=== PATIENT | male | born 1945 | race Caucasian/White ===

== ENCOUNTER → 2016-07-10 | Outpatient (CLI) | payer OTHER, MEDICARE ==
--- NOTE | 2016-07-11 08:35 | DX ---
DEXA Bone Densitometry Technique: DEXA scan was performed on [employer] W Bone Densitometer Indication: Screening for osteoporosis Comparator Study: No previous study Results: Lumbar Spine BMD: 0.965 T-score: -1.1 Total Hip (Right) BMD: 0.667 T-score: -2.4 Femoral Neck (Right) BMD: 0.549 T-score: -2.8 Total Hip (Left) BMD: 0.810 T-score: -1.5 Femoral Neck (Left) BMD: 0.677 T-score: -1.9 CONCLUSION: Osteoporosis based on the bone mineral density of the right femoral neck. ADDITIONAL COMMENTS: This patient meets National Osteoporosis Foundation guidelines for further management and treatment o f osteoporosis. By FRAX calculation, the estimated 10 year probability of any major osteoporotic fracture is 12%, and the estimated 10 year probability of hip fracture is 4.4% Consider repeating the study in 2 years or as clinically indicated. NOTE: The risk of osteoporotic fractures increases approximately twofold for each 1.0 SD decrease in T-score. The T-score represents the standard deviations from a young normal, same sex, reference po pulation. Low bone density is not the only risk factor for fracture. Clinical factors to consider include fall risk, previous osteoporotic fractures, family history of fractures, smoking, and low body weight. Patients who have an unexpectedly low BMD may need to be evaluated for secondary causes of low bone m ineral density. In comparing the present study to a prior study, lack of a significant increase or decrease in BMD ma y signify efficacy of the patient's present treatment. Bone mineral density measurements performed with densitometers produced by different manufacturers ar e not comparable. For the most reproducible BMD measurement, subsequent exams should be performed on the same densitometer.
== END ==
LOC: BMCIMAGING 09:57
PROVIDERS: ATTEND Internal Medicine
DX: M81.0 Age-related osteoporosis without current pathological fracture (principal)

== ENCOUNTER → 2016-12-23 | Outpatient (CLI) | payer OTHER, MEDICARE | LOC: BMCIMAGING 07:33 | PROVIDERS: ATTEND Internal Medicine Endocrinology, Diabetes & Metabolism | DX: R93.8 Abnormal findings on diagnostic imaging of other specified body structures (principal); Z85.818 Personal history of malignant neoplasm of other sites of lip, oral cavity, and pharynx; M81.0 Age-related osteoporosis without current pathological fracture; Z92.21 Personal history of antineoplastic chemotherapy; Z92.3 Personal history of irradiation | CPT/HCPCS: 76536-PO ==

== ENCOUNTER 2016-12-25 18:11 | Emergency (ER) | payer OTHER, MEDICARE ==
[2016-12-25 18:41] VITALS: BP 140/82; PULSE 77; RESP 16; TEMP 98.2; O2SAT 97
--- NOTE | 2016-12-25 19:10 | EDPHY ---
H & P Smoking Status: Never smoked Time Seen by Provider: 12/25/16 19:00 HPI/ROS: CHIEF COMPLAINT: Right shoulder injury HISTORY OF PRESENT ILLNESS: 71-year-old male presents to the emergency department by private vehicle complaining of isolated pain to his right shoulder. The patient was at home at 5:30 a.m. this morning and tripped over the threshold of the door and fell on his right shoulder. He did not hit his head or lose consciousness. He went to work and worked all day long and was complaining of pain especially with range of motion of the right shoulder. Denies any other trauma or injury. He is right-hand dominant. ROS: Denies numbness or tingling in his fingers, pain in his right elbow or wrist. (Bren Burrows) Past Medical/Surgical History: Hypertension, hyperlipidemia, coronary artery disease (Bren Burrows) Social History: Single and lives in [place] (Bren Burrows) Physical Exam: Examination the right shoulder reveals no obvious deformity. No palpable bony tenderness to palpate over the right proximal humerus. There is no abrasion or puncture wound. No ecchymosis. He has limited abduction, flexion and extension of the right shoulder. He is able to internally rotate the right shoulder although this does cause pain. He has normal sensation to light touch with normal 2 point discrimination. Strong radial pulse at the right wrist. Full range of motion of the right wrist and elbow. (Bren Burrows) Constitutional: Initial Vital Signs Temperature (C) 36.8 C 12/25/16 18:39 Heart Rate 77 12/25/16 18:39 Respiratory Rate 16 12/25/16 18:39 Blood Pressure 140/82 H 12/25/16 18:39 O2 Sat (%) 97 12/25/16 18:39 O2 Delivery Mode Room Air Allergies/Adverse Reactions: No Known Allergies Allergy (Verified 12/25/16 18:38) Home Medications: Medication Instructions Recorded Calcium Carbonate [Tums 500MG (*)] 500 mg PO HS PRN 08/30/13 Aspirin [Aspirin 325 mg (*)] 325 mg PO DAILY #30 tab 01/09/14 Lisinopril [Zestril 5 mg (*)] 5 mg PO DAILY #30 tab 01/09/14 Atorvastatin Calcium [Lipitor 40 40 mg PO DAILY@18 12/26/15 mg (*)] Clopidogrel Bisulfate [Plavix (*)] 75 mg PO DAILY #30 tab 12/26/15 Levothyroxine [Synthroid 100 mcg 100 mcg PO DAILY06 12/26/15 (*)] MDM/Departure - MDM Imaging: I viewed and interpreted images myself - MDM Procedures: Patient was placed in a sling for comfort and examined post application in good placement with normal HEAD SHIPPER. (Bren Burrows) ED Course/Re-evaluation: 71-year-old male presents to the emergency department with right shoulder injury. X-rays reveal no fractures. He was placed in a sling and given orthopedic referral. Patient denies any presyncopal symptoms prior to his fall. He states that it was a simple mechanical trip and fall at home. (Bren Burrows) I did not see this patient while he was in the emergency department. However his care was discussed with the PA while the patient was in the department. I agree with treatment plan and management (Robert Craig) - Depart Disposition: Home, Routine, Self-Care Clinical Impression: Sprain of right shoulder Condition: Good Instructions: Shoulder Sprain (ED) Additional Instructions: Sling for comfort and support. Follow up with [facility] orthopedic surgeon in 1 week to recheck. He will likely require advanced imaging such as MRI for further evaluation. Referrals: Aleksander Valdovinos MD [Primary Care Provider] - As per Instructions Will Carwford MD [Medical Doctor] - 5-7 days, call for appt. ([facility] orthopedic surgeon)
== END 2016-12-25 19:15 | disposition home or self-care (01) ==
DX: S43.401A Unspecified sprain of right shoulder joint, initial encounter (principal); I10 Essential (primary) hypertension; I25.10 Atherosclerotic heart disease of native coronary artery without angina pectoris; Z79.82 Long term (current) use of aspirin; W01.0XXA Fall on same level from slipping, tripping and stumbling without subsequent striking against object, initial encounter; Y92.009 Unspecified place in unspecified non-institutional (private) residence as the place of occurrence of the external cause; Y99.8 Other external cause status; Y93.89 Activity, other specified
CPT/HCPCS: 73030; 73060; 99283; A4565

== ENCOUNTER → 2017-08-15 | Outpatient (CLI) | payer OTHER, MEDICARE | LOC: BMCIMAGING 14:07 | PROVIDERS: ATTEND Internal Medicine Endocrinology, Diabetes & Metabolism | DX: Z13.820 Encounter for screening for osteoporosis (principal); M81.0 Age-related osteoporosis without current pathological fracture ==